=== PATIENT | male | born 1980 | race Caucasian/White ===

== ENCOUNTER 2017-06-26 15:05 | Emergency (ER) | payer BC, OTHER ==
[~2017-06-26] VITALS: Ht 170.2 cm; Wt 69.6 kg
[2017-06-26 15:07] VITALS: BP 123/85
== END 2017-06-26 16:34 | disposition home or self-care (01) ==
LOC: ED 16:26
DX: M62.830 Muscle spasm of back (principal); V43.52XA Car driver injured in collision with other type car in traffic accident, initial encounter; Y93.89 Activity, other specified; Y92.89 Other specified places as the place of occurrence of the external cause; Y99.8 Other external cause status; Y92.481 Parking lot as the place of occurrence of the external cause
CPT/HCPCS: 72110; 99284

== ENCOUNTER → 2017-08-22 | Outpatient (CLI) | payer OTHER ==
[2017-08-22 07:26] LABS: HEMATOCRIT 46.4 % (39.2-51.8); WHITE BLOOD COUNT 7.4 x10^3/uL (3.4-10)
[2017-08-22 07:39] LABS: ASPARTATE AMINO TRANSFERASE 32 U/L (15-37); BLOOD UREA NITROGEN 8 mg/dL (7-18)
[2017-08-28 17:06] LABS: ALANINE 292.3 umol/L (124.8-564.2); ALLOSIOLEUCINE 1.5 umol/L (0.4-3.2); ALPHA-AMINOADIPATE <0.5 umol/L (0.0-2.2); ALPHA-AMINOBUTYRATE 7.1 umol/L (5.4-34.5); ARGININE 80.5 umol/L (32.0-150.0); ARGININOSUCCINATE <0.1 umol/L (0.0-3.0); ASPARAGINE 72.2 umol/L (29.5-84.5); ASPARTATE 3.4 umol/L (0.9-7.4); BETA-ALANINE 2.7 umol/L (1.1-9.0); BETA-AMINOISOBUTYRATE 1.1 umol/L (0.3-4.3); CITRULLINE 33.9 umol/L (13.7-63.2); CYSTATHIONINE 0.2 umol/L (0.0-0.7); CYSTINE 29.1 umol/L (13.5-60.2); GAMMA-AMINOBUTYRATE <0.4 umol/L (0.0-0.3); GLUTAMINE 603.3 umol/L (332.0-754.0); GLYCINE 299.1 umol/L (132.0-467.0); HISTIDINE 93.7 umol/L (47.2-98.5); HOMOCITRULLINE 0.7 umol/L (0.0-1.7); HOMOCYSTINE <0.1 umol/L (0.0-0.1); HYDROXYLYSINE 0.3 umol/L (0.1-0.8); INTERPRETATION Comment: (.); ISOLEUCINE 62.5 umol/L (27.7-112.8); LEUCINE 137.7 umol/L (54.9-205.0); METHIONINE 26.7 umol/L (12.7-41.1); ORNITHINE 57.2 umol/L (30.5-131.4); PHENYLALANINE 1188.7 umol/L (33.6-101.9); PROLINE 263.9 umol/L (84.8-352.5); SARCOSINE 2.4 umol/L (0.0-4.0); SERINE 129.1 umol/L (48.7-145.2); TAURINE 79.8 umol/L (29.2-132.3); THREONINE 65.1 umol/L (67.8-211.6); TRYPTOPHAN 60.5 umol/L (23.5-93.0); TYROSINE 57.5 umol/L (31.1-118.1); VALINE 231.3 umol/L (102.6-345.4)
== END | disposition home or self-care (01) ==
LOC: LAB 07:04
PROVIDERS: ATTEND Family Medicine
DX: Z13.220 Encounter for screening for lipoid disorders (principal); Z13.0 Encounter for screening for diseases of the blood and blood-forming organs and certain disorders involving the immune mechanism; Z13.1 Encounter for screening for diabetes mellitus; Z13.21 Encounter for screening for nutritional disorder; R53.83 Other fatigue; E70.0 Classical phenylketonuria
CPT/HCPCS: 36415; 80053; 80061; 81003; 82139; 82306; 83036; 84443; 85025

== ENCOUNTER → 2018-03-14 | Outpatient (CLI) | payer OTHER | END | disposition home or self-care (01) | LOC: CFH 10:20 | PROVIDERS: ATTEND Family Medicine | DX: Z13.820 Encounter for screening for osteoporosis (principal); E70.0 Classical phenylketonuria | CPT/HCPCS: 77080 ==

== ENCOUNTER → 2018-03-14 | Outpatient (CLI) | payer OTHER ==
[2018-03-14 11:25] LABS: ALBUMIN 4.6 g/dL (3.4-5.0); BILIRUBIN, DIRECT 0.2 mg/dL (0.1-0.2)
[2018-03-14 11:27] LABS: BILIRUBIN,INDIRECT 0.5 mg/dL (0.0-2.0); BILIRUBIN,TOTAL 0.7 mg/dL (0.2-1.0); TOTAL PROTEIN 7.7 g/dL (6.4-8.2)
== END | disposition home or self-care (01) ==
LOC: LAB 10:55
PROVIDERS: ATTEND Family Medicine
DX: Z77.21 Contact with and (suspected) exposure to potentially hazardous body fluids (principal)
CPT/HCPCS: 36415; 80076; 86592; 86696; 87491; 87591; 87806; G0475

== ENCOUNTER 2019-02-28 19:32 | Emergency (ER) | payer OTHER ==
[~2019-02-28] VITALS: Ht 172.7 cm; Wt 74.0 kg
[2019-02-28 19:34] VITALS: BP 143/101
[2019-02-28] MEDS ORDERED: IBUPROFEN 800 MG TABLET ONE (20:10)
[2019-02-28] MEDS ORDERED: IBUPROFEN 800 MG TABLET PO ONE (20:30)
--- NOTE | 2019-02-28 20:33 | NUR ---
Patient/Caregiver given discharge instructions and they have confirmed that they understand the instructions. Patient ambulatory with steady gait.
== END 2019-02-28 20:35 | disposition home or self-care (01) ==
LOC: ED 20:29
DX: S46.002A Unspecified injury of muscle(s) and tendon(s) of the rotator cuff of left shoulder, initial encounter (principal); W19.XXXA Unspecified fall, initial encounter; Y93.89 Activity, other specified; Y92.89 Other specified places as the place of occurrence of the external cause; Y99.8 Other external cause status
CPT/HCPCS: 99283

== ENCOUNTER → 2019-04-03 | Outpatient (CLI) | payer OTHER ==
[2019-04-03 09:48] LABS: BASOPHILS # (AUTO) 0.05 x10^3/uL (0-0.1); BASOPHILS % (AUTO) 1 % (0-1); EOSINOPHILS % (AUTO) 1 % (1-7); LYMPHOCYTES # (AUTO) 1.99 x10^3/uL (1-3.4); LYMPHOCYTES % (AUTO) 27 % (22-44); MD NO; MEAN CORPUSCULAR HEMOGLOBIN 31.3 pg (27.5-34.5); MEAN CORPUSCULAR VOLUME 92.2 fL (81-97); MEAN PLATELET VOLUME 10.1 fL (7.4-10.4); MONOCYTES # (AUTO) 0.49 x10^3/uL (0.2-0.8); MONOCYTES % (AUTO) 7 % (2-9); NEUTROPHILS # (AUTO) 4.76 x10^3/uL (1.8-6.8); NEUTROPHILS % (AUTO) 64 % (42-75); PLATELET COUNT 254 x10^3/uL (130-400); RED BLOOD COUNT 5.35 x10^6/uL (4.38-5.82); RED CELL DISTRIBUTION WIDTH 12.6 % (9.4-14.8)
[2019-04-03 10:01] LABS: ALANINE AMINOTRANSFERASE 91 U/L (12-78); ALBUMIN 4.7 g/dL (3.4-5.0); ANION GAP 6 mmol/L (5-15); CALCIUM 8.8 mg/dL (8.5-10.1); CHLORIDE 108 mmol/L (98-107); CHOLESTEROL, TOTAL 191 mg/dL (140-239); CREATININE 0.89 mg/dL (0.7-1.3)
[2019-04-03 10:12] LABS: ALKALINE PHOSPHATASE 77 U/L (45-117); HDL CHOL % 25 % (26-37); HDL CHOLESTEROL (DIRECT) 48 mg/dL (40-60); LDL CHOLESTEROL,CALCULATED 115 mg/dL (54-169); LDL/HDL RATIO 2.4 (0.5-3.0); TOTAL PROTEIN 7.8 g/dL (6.4-8.2); TRIGLYCERIDES 138 mg/dL (50-200); VLDL CHOLESTEROL 28 mg/dL (0-25)
== END | disposition home or self-care (01) ==
LOC: LAB 09:38
PROVIDERS: ATTEND Family Medicine
DX: Z13.220 Encounter for screening for lipoid disorders (principal); Z13.1 Encounter for screening for diabetes mellitus; E70.0 Classical phenylketonuria
CPT/HCPCS: 36415; 80053; 80061; 82306; 84443; 85025

== ENCOUNTER 2019-05-04 07:25 | Outpatient (CLI) | payer OTHER | END 2019-05-04 23:59 | disposition home or self-care (01) | LOC: CFH 07:25 | PROVIDERS: ATTEND Family Medicine | DX: R74.8 Abnormal levels of other serum enzymes (principal) | CPT/HCPCS: 76700 ==

== ENCOUNTER 2019-05-04 14:11 | Outpatient (CLI) | payer OTHER ==
[2019-05-05 16:02] LABS: ANA SCREEN NEGATIVE (Negative)
== END 2019-05-04 23:59 | disposition home or self-care (01) ==
LOC: LAB 14:11
PROVIDERS: ATTEND Family Medicine
DX: R74.8 Abnormal levels of other serum enzymes (principal)
CPT/HCPCS: 36415; 86038; 86803

== ENCOUNTER → 2020-02-22 | Outpatient (CLI) | payer OTHER ==
[2020-02-22 07:44] LABS: BASOPHILS # (AUTO) 0.04 x10^3/uL (0-0.1); BASOPHILS % (AUTO) 1 % (0-1); EOSINOPHILS # (AUTO) 0.09 x10^3/uL (0-0.4); EOSINOPHILS % (AUTO) 2 % (1-7); LYMPHOCYTES # (AUTO) 1.59 x10^3/uL (1-3.4); LYMPHOCYTES % (AUTO) 28 % (22-44); MD NO; MEAN CORPUSCULAR HEMOGLOBIN 30.9 pg (27.5-34.5); MEAN CORPUSCULAR HGB CONC 34.4 g/dL (33.2-36.2); MEAN CORPUSCULAR VOLUME 89.9 fL (81-97); MEAN PLATELET VOLUME 10.1 fL (7.4-10.4); MONOCYTES # (AUTO) 0.35 x10^3/uL (0.2-0.8); MONOCYTES % (AUTO) 6 % (2-9); NEUTROPHILS # (AUTO) 3.57 x10^3/uL (1.8-6.8); NEUTROPHILS % (AUTO) 63 % (42-75); PLATELET COUNT 232 x10^3/uL (130-400); RED BLOOD COUNT 5.02 x10^6/uL (4.38-5.82); RED CELL DISTRIBUTION WIDTH 12.7 % (9.4-14.8)
[2020-02-22 07:54] LABS: ALBUMIN 4.5 g/dL (3.4-5.0); CALCIUM 8.9 mg/dL (8.5-10.1)
[2020-02-22 08:02] LABS: ANION GAP 6 mmol/L (5-15); CHLORIDE 110 mmol/L (98-107)
[2020-02-22 08:20] LABS: % IRON SATURATION 33 % (20-55); ALANINE AMINOTRANSFERASE 39 U/L (12-78); ALKALINE PHOSPHATASE 82 U/L (45-117); BILIRUBIN,TOTAL 0.8 mg/dL (0.2-1.0); CREATININE 0.85 mg/dL (0.7-1.3); IRON LEVEL 109 mcg/dL (65-175); PREALBUMIN 30.8 mg/dL (20.0-40.0); TOTAL IRON BINDING CAPACITY 332 mcg/dL (250-450); TOTAL PROTEIN 7.5 g/dL (6.4-8.2)
[2020-02-22 08:24] LABS: FOLATE LEVEL > 20.0 ng/mL (3.1-17.5)
== END | disposition home or self-care (01) ==
LOC: LAB 07:16
PROVIDERS: ATTEND Family Medicine
DX: E70.0 Classical phenylketonuria (principal)
CPT/HCPCS: 36415; 80053; 82139; 82306; 82607; 82728; 82746; 83540; 83550; 84134; 85025

== ENCOUNTER → 2020-03-21 | Outpatient (CLI) | payer OTHER | END | disposition home or self-care (01) | LOC: LAB 07:27 | PROVIDERS: ATTEND Family Medicine | DX: E70.0 Classical phenylketonuria (principal) | CPT/HCPCS: 36415; 82139 ==

== ENCOUNTER 2021-03-18 18:29 | Emergency (ER) | payer OTHER ==
[~2021-03-18] VITALS: Ht 172.7 cm; Wt 73.7 kg
--- NOTE | 2021-03-18 18:52 | NUR ---
RN and MD assessment completed.
--- NOTE | 2021-03-18 19:01 | NUR ---
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
--- NOTE | 2021-03-18 19:55 | NUR ---
R foot rocker shoe applied with good distal CMS before and after application. Pt ambulatory to d/c desk without issue.
[2021-03-18 19:59] VITALS: BP 116/54
== END 2021-03-18 20:02 | disposition home or self-care (01) ==
LOC: ED 19:50
DX: S92.514A Nondisplaced fracture of proximal phalanx of right lesser toe(s), initial encounter for closed fracture (principal); X50.0XXA Overexertion from strenuous movement or load, initial encounter; Y93.89 Activity, other specified; Y92.328 Other athletic field as the place of occurrence of the external cause; Y99.8 Other external cause status
CPT/HCPCS: 99283